=== PATIENT | female | born 1960 | race Hispanic/Latino ===

== ENCOUNTER 2021-05-08 06:25 | Day surgery (SDC) | payer MEDICARE ==
[2021-05-03 10:56] LABS: BASOPHILS % (AUTO) 0.5 % (0.0-5.0); EOSINOPHILS % (AUTO) 0.8 % (0.0-8.0); HEMATOCRIT 45.1 % (36-48); LYMPHOCYTES % (AUTO) 21.8 % (21.0-51.0); MEAN CORPUSCULAR HEMOGLOBIN 27.3 pg (27.0-33.0); MEAN CORPUSCULAR HGB CONC 31.5 g/dL (32.0-36.0); MEAN CORPUSCULAR VOLUME 86.7 fL (79-99); NEUTROPHILS % (AUTO) 72.5 % (40.0-77.0); PLATELET COUNT (AUTO) 247 K/uL (130-400); RED CELL DISTRIBUTION WIDTH 13.7 % (11.0-15.5); WHITE BLOOD COUNT (AUTO) 8.4 K/uL (4.8-10.8)
[2021-05-03 11:01] LABS: CREATININE 0.5 mg/dL (0.5-1.5); POTASSIUM 4.4 mmol/L (3.5-5.1)
[2021-05-04 14:52] VITALS: BP 148/76
[~2021-05-08] VITALS: Ht 160 cm; Wt 80.0 kg
[2021-05-08] VITALS (15 sets, daily range): BP systolic 118–168; BP diastolic 68–79
[~2021-05-08 06:25] MED LIST: LORA10CA PO; NAPR-1023 PO; OXYB10TA30 PO; SERT100T PO; SITA100T12 PO; TYL3B PO
[2021-05-08] MEDS ORDERED: 0.9%NACL 1000ML 1,000 ML IV ONE (07:30)
[2021-05-08] MEDS: CEFAZOLIN SODIUM 1 GM VIAL IVP ONE ×2 (07:49→09:45)
[2021-05-08] MEDS ORDERED: ROCURONIUM 10MG/1ML SYR 10 MG/ML ML ONE (08:02)
[2021-05-08] MEDS ORDERED: PROPOFOL 10 MG/ML 20ML VIAL IV ONE (08:02)
[2021-05-08] MEDS ORDERED: FENTANYL CITRATE PF 50 MCG/1 ML 2ML VIAL ONE (08:02)
[2021-05-08] MEDS ORDERED: LIDOCAINE PF 100MG/5ML (2%) SYRINGE 5ML ONE (08:02)
[2021-05-08] MEDS ORDERED: MIDAZOLAM HCL 1 MG/ML 2ML VIAL ONE (08:02)
[2021-05-08] MEDS ORDERED: ONDANSETRON 4MG INJ ONE (08:02)
[2021-05-08] MEDS ORDERED: EPHEDRINE SULFATE 50 MG/ML AMPULE ONE (09:57)
[2021-05-08] MEDS ORDERED: GLYCOPYRROLATE 1 MG/5 ML SYRINGE ONE (10:34)
[2021-05-08] MEDS ORDERED: NEOSTIGMINE 5MG/5ML SYR IV ONE (10:34)
[2021-05-08] MEDS ORDERED: CEPH500B PO (10:56)
[2021-05-08] MEDS ORDERED: TYL3B PO (10:56)
[2021-05-08] MEDS ORDERED: MEPERIDINE-PF 25 MG/ML SYG ONE ×2 (10:57→11:10)
== END 2021-05-08 12:25 | disposition home or self-care (01) ==
LOC: DAH 06:25
PROVIDERS: ATTEND Orthopaedic Surgery
DX: M23.342 Other meniscus derangements, anterior horn of lateral meniscus, left knee (principal); Z20.822 Contact with and (suspected) exposure to COVID-19; M23.322 Other meniscus derangements, posterior horn of medial meniscus, left knee; M17.12 Unilateral primary osteoarthritis, left knee; M94.262 Chondromalacia, left knee; M25.762 Osteophyte, left knee; J45.909 Unspecified asthma, uncomplicated; F41.9 Anxiety disorder, unspecified; E11.9 Type 2 diabetes mellitus without complications; E03.9 Hypothyroidism, unspecified; Z98.84 Bariatric surgery status; Z90.710 Acquired absence of both cervix and uterus; Z83.3 Family history of diabetes mellitus; Z82.3 Family history of stroke; Z87.891 Personal history of nicotine dependence; Z79.899 Other long term (current) drug therapy
CPT/HCPCS: 29880; 36415; 80048; 82948 ×2; 85025; 87635; A4215; A4221; A4222; A4223; A4606; A4649 ×2; A4663; A4930; A5120; A6206; A6223; C9803; J0690; J2001; J2175 ×2; J2250; J2405; J2704; J2710; J3010; J3490 ×2; J7030; J7120

== ENCOUNTER 2023-11-09 11:53 | Day surgery (SDC) | payer MEDICARE ==
[~2023-11-09] VITALS: Ht 160 cm; Wt 75.3 kg
[~2023-11-09 11:53] MED LIST changes: +BUSP10TA3 PO; +FAMO40TA75 PO; +FLUO20CA36 PO; -LORA10CA PO; +MIRA50TA PO; -NAPR-1023 PO; -OXYB10TA30 PO; +OXYB15TA19 PO; +PANT40TA54 PO; -SERT100T PO; -TYL3B PO
[2023-11-09] MEDS ORDERED: 0.9%NACL 1000ML 1,000 ML IV ONE (11:59)
[2023-11-09 12:00] VITALS: BP 117/76; PULSE 72; RESP 15
[2023-11-09] MEDS ORDERED: MIDAZOLAM HCL 1 MG/ML 2ML VIAL ONE (13:32)
[2023-11-09] MEDS ORDERED: PROPOFOL 10 MG/ML 20ML VIAL IV ONE (13:32)
== END 2023-11-09 14:28 | disposition home or self-care (01) ==
LOC: DAH 11:53
PROVIDERS: ATTEND Surgery
DX: K21.00 Gastro-esophageal reflux disease with esophagitis, without bleeding (principal); K91.850 Pouchitis; I10 Essential (primary) hypertension; E11.9 Type 2 diabetes mellitus without complications; F41.9 Anxiety disorder, unspecified; M19.90 Unspecified osteoarthritis, unspecified site; E66.9 Obesity, unspecified; Z79.01 Long term (current) use of anticoagulants; Z98.890 Other specified postprocedural states; Z87.891 Personal history of nicotine dependence; Z90.49 Acquired absence of other specified parts of digestive tract; Z90.710 Acquired absence of both cervix and uterus; Z98.84 Bariatric surgery status; Z82.49 Family history of ischemic heart disease and other diseases of the circulatory system; Z83.3 Family history of diabetes mellitus; Z80.9 Family history of malignant neoplasm, unspecified; Z68.29 Body mass index [BMI] 29.0-29.9, adult
CPT/HCPCS: 82948; 88305; 88312; 43239; J7030 ×2; J2250; J2704; A4620; A4215 ×2; A4223; A7002; A4222; A4221; A4663; A4606; J3490

== ENCOUNTER 2024-07-07 05:44 | Day surgery (SDC) | payer MEDICARE ==
[~2024-07-07] VITALS: Ht 160 cm; Wt 74.8 kg
[2024-07-07] VITALS (12 sets, daily range): BP systolic 99–147; BP diastolic 54–75; PULSE 66–82; RESP 15–16; TEMP 97.2–97.9
[~2024-07-07 05:44] MED LIST changes: +FLUO-418 PO; -FLUO20CA36 PO
[2024-07-07] MEDS: 0.9%NACL 1000ML 1,000 ML IV ONE (06:40)
[2024-07-07] MEDS ORDERED: LIDOCAINE PF 100MG/5ML (2%) SYRINGE 5ML ONE (07:26)
[2024-07-07] MEDS ORDERED: proPOFol 10 MG/ML 20ML VIAL IV ONE (07:26)
[2024-07-07] MEDS ORDERED: SIMETHICONE 40 MG/0.6 ML ML ONE (07:34)
== END 2024-07-07 09:25 | disposition home or self-care (01) ==
LOC: DAH 05:44
PROVIDERS: ATTEND Surgery
DX: K28.9 Gastrojejunal ulcer, unspecified as acute or chronic, without hemorrhage or perforation (principal); D13.39 Benign neoplasm of other parts of small intestine; K31.2 Hourglass stricture and stenosis of stomach; K29.50 Unspecified chronic gastritis without bleeding; R13.10 Dysphagia, unspecified; E08.610 Diabetes mellitus due to underlying condition with diabetic neuropathic arthropathy; K22.89 Other specified disease of esophagus; Z88.8 Allergy status to other drugs, medicaments and biological substances; Z90.710 Acquired absence of both cervix and uterus; Z90.49 Acquired absence of other specified parts of digestive tract; Z98.84 Bariatric surgery status; Z98.1 Arthrodesis status; Z79.899 Other long term (current) drug therapy
CPT/HCPCS: 43251; 82948 ×2; 43239; J7030; J2001; J2704; A4620; A4215 ×2; A4223; A4222; A4221; A4663; A4606; J3490